=== PATIENT | female | born 1995 | race American Indian/Alaskan Native ===

== ENCOUNTER 2017-06-21 22:24 | Emergency (ER) | payer MEDICAID, OTHER ==
--- NOTE | 2017-06-22 04:49 | Cat Scan Report ---
FINAL REPORT EXAM: CT HEAD/BRAIN WO CON HISTORY: head injury TECHNIQUE: CT imaging acquired through the head without intravenous contrast. Transaxial reformations are provided. PRIORS: None. FINDINGS: The ventricles, cisterns and sulci are normal. No intraparenchymal or extra-axial mass, hemorrhage, or mass effect. Suarez and white-matter differentiation is normal. Normal spherical shape of the globes. Paranasal sinuses and mastoid air cells are clear. No skull or facial fracture visualized. IMPRESSION: No acute intracranial abnormality.
--- NOTE | 2017-06-22 09:34 | Emergency Department Report ---
ED Head Trauma HPI - General Chief complaint: Dizziness Stated complaint: HIT IN THE HEAD AT WORK Time Seen by Provider: 06/22/17 09:18 Source: patient Mode of arrival: Ambulatory Limitations: No Limitations - History of Present Illness MD Complaint: head injury -: Last night Arrival Conditions: Negative: C-spine immobilization present, spinal board immobilization present Mechanism of Injury: work related injury Location: parietal Loss of Consciousness: no Place: work Radiation: none Severity: moderate Severity scale (0 -10): 6 Quality: aching Consistency: constant Associated Symptoms: nausea, vertigo. denies: confusion, amnesia, repetitive questioning, vomiting, weakness, tingling - Related Data Previous Rx's Medication Instructions Recorded Last Taken Type HYDROcodone/APAP 5-325 [[place] 1 each PO Q4HR PRN #12 tablet 06/22/17 Unknown Rx 5/325] Ibuprofen [Motrin] 800 mg PO Q8HR PRN #20 tablet 06/22/17 Unknown Rx Meclizine [Antivert] 25 mg PO TID PRN #12 tablet 06/22/17 Unknown Rx Allergies/Adverse reactions: Allergies Allergy/AdvReac Type Severity Reaction Status Date / Time No Known Allergies Allergy Verified 01/18/13 02:21 ED Review of Systems ROS: Stated complaint: HIT IN THE HEAD AT WORK Other details as noted in HPI Comment: All other systems reviewed and negative ED Past Medical Hx - Past Medical History Previous Medical History?: No - Surgical History Past Surgical History?: No - Social History Smoking Status: Never Smoker Substance Use Type: None - Medications Home Medications: Home Medications Medication Instructions Recorded Confirmed Last Taken Type HYDROcodone/APAP 5-325 [[place] 1 each PO Q4HR PRN #12 tablet 06/22/17 Unknown Rx 5/325] Ibuprofen [Motrin] 800 mg PO Q8HR PRN #20 tablet 06/22/17 Unknown Rx Meclizine [Antivert] 25 mg PO TID PRN #12 tablet 06/22/17 Unknown Rx ED Physical Exam - General Limitations: No Limitations General appearance: alert, in no apparent distress - Head Head exam: Present: atraumatic, normocephalic - Eye Eye exam: Present: normal appearance - ENT ENT exam: Present: mucous membranes moist - Neck Neck exam: Present: normal inspection - Respiratory Respiratory exam: Present: normal lung sounds bilaterally. Absent: respiratory distress, wheezes, rales, rhonchi - Cardiovascular Cardiovascular Exam: Present: regular rate, normal rhythm. Absent: systolic murmur, diastolic murmur, rubs, gallop - GI/Abdominal GI/Abdominal exam: Present: soft, normal bowel sounds. Absent: distended, tenderness, guarding, rebound - Extremities Exam Extremities exam: Present: normal inspection - Back Exam Back exam: Present: normal inspection - Neurological Exam Neurological exam: Present: alert, oriented X3 - Psychiatric Psychiatric exam: Present: normal affect, normal mood - Skin Skin exam: Present: warm, dry, intact, normal color. Absent: rash ED Course Vital Signs 06/21/17 06/21/17 06/22/17 22:39 22:46 03:59 Temperature 98.8 F 98.8 F 98.4 F Pulse Rate 90 84 77 Respiratory 16 16 16 Rate Blood Pressure 131/70 131/70 127/72 Blood Pressure [Right] O2 Sat by Pulse 99 96 99 Oximetry 06/22/17 06/22/17 06/22/17 05:46 05:55 06:00 Temperature 98.1 F Pulse Rate 85 Respiratory 16 Rate Blood Pressure 130/85 Blood Pressure 130/85 [Right] O2 Sat by Pulse 99 99 100 Oximetry 06/22/17 06/22/17 06/22/17 06:16 06:30 06:46 Temperature Pulse Rate Respiratory Rate Blood Pressure 125/55 121/58 125/55 Blood Pressure [Right] O2 Sat by Pulse 98 100 99 Oximetry 06/22/17 07:25 Temperature 97.8 F Pulse Rate 77 Respiratory 19 Rate Blood Pressure Blood Pressure 133/61 [Right] O2 Sat by Pulse 100 Oximetry - Radiology Data Radiology results: report reviewed (CT head withihn nl limits) Critical care attestation.: If time is entered above; I have spent that time in minutes in the direct care of this critically ill patient, excluding procedure time. ED Disposition Clinical Impression: Mild concussion Disposition: DC-01 TO HOME OR SELFCARE Is pt being admited?: No Does the pt Need Aspirin: No Condition: Stable Instructions: Minor Head Injury (ED) Referrals: PRIMARY CARE, [Primary Care Provider] - 3-5 Days Forms: Work/School Release Form(ED)
[2017-06-22 10:09] VITALS: BP 114/65
== END 2017-06-22 10:07 | disposition home or self-care (01) ==
LOC: ED 22:24
DX: S06.0X0A Concussion without loss of consciousness, initial encounter (principal); W22.09XA Striking against other stationary object, initial encounter; Y93.89 Activity, other specified; Y92.89 Other specified places as the place of occurrence of the external cause; Y99.8 Other external cause status
CPT/HCPCS: 70450; 99283

== ENCOUNTER 2018-08-25 13:43 | Emergency (ER) | payer SELFPAY ==
[2018-08-25 14:00] VITALS: BP 119/73
--- NOTE | 2018-08-25 14:09 | Event Note ---
ED Screening Note Date of service: 08/25/18 Time: 14:06 ED Screening Note: 22 y/o female comes in for acute breast pain. Started 20 minutes ago. This initial assessment/diagnostic orders/clinical plan/treatment(s) is/are subject to change based on patients health status, clinical progression and re- assessment by fellow clinical providers in the ED. Further treatment and workup at subsequent clinical providers discretion. Patient/guardian urged not to elope from the ED as their condition may be serious if not clinically assessed and managed. Initial orders include:
--- NOTE | 2018-08-25 14:31 | Emergency Department Report ---
ED General Adult HPI - General Chief complaint: Medical Clearance Stated complaint: LUMP/LT BREAST Time Seen by Provider: 08/25/18 14:23 Source: patient Mode of arrival: Ambulatory Limitations: No Limitations - History of Present Illness Initial comments: Patient is 23 years old female with no significant past medical history. Patient presented to the ER stating that she found that she have a lump on her left breast. Patient stated that she found it today. Patient denied any weight lost. Patient stated that she does have family history of breast cancer. - Related Data Previous Rx's Medication Instructions Recorded Last Taken Type HYDROcodone/APAP 5-325 [[place] 1 each PO Q4HR PRN #12 tablet 06/22/17 Unknown Rx 5/325] Ibuprofen [Motrin] 800 mg PO Q8HR PRN #20 tablet 06/22/17 Unknown Rx Meclizine [Antivert] 25 mg PO TID PRN #12 tablet 06/22/17 Unknown Rx Allergies Allergy/AdvReac Type Severity Reaction Status Date / Time No Known Allergies Allergy Verified 01/18/13 02:21 ED Review of Systems ROS: Stated complaint: LUMP/LT BREAST Other details as noted in HPI Comment: All other systems reviewed and negative Constitutional: denies: chills, fever Respiratory: denies: cough, shortness of breath Cardiovascular: denies: chest pain Gastrointestinal: denies: abdominal pain ED Past Medical Hx - Social History Smoking Status: Former Smoker Substance Use Type: None - Medications Home Medications: Home Medications Medication Instructions Recorded Confirmed Last Taken Type HYDROcodone/APAP 5-325 [[place] 1 each PO Q4HR PRN #12 tablet 06/22/17 Unknown Rx 5/325] Ibuprofen [Motrin] 800 mg PO Q8HR PRN #20 tablet 06/22/17 Unknown Rx Meclizine [Antivert] 25 mg PO TID PRN #12 tablet 06/22/17 Unknown Rx ED Physical Exam - General Limitations: No Limitations General appearance: alert, in no apparent distress - Head Head exam: Present: atraumatic, normocephalic, normal inspection - ENT ENT exam: Present: normal exam - Neck Neck exam: Present: normal inspection, full ROM. Absent: tenderness, meningismus - Respiratory Respiratory exam: Present: normal lung sounds bilaterally - Cardiovascular Cardiovascular Exam: Present: regular rate, normal rhythm, normal heart sounds - GI/Abdominal GI/Abdominal exam: Present: soft, normal bowel sounds. Absent: distended, tenderness, guarding, rebound, rigid, pulsatile mass - Extremities Exam Extremities exam: Present: normal inspection, full ROM, normal capillary refill - Back Exam Back exam: Present: normal inspection, full ROM. Absent: CVA tenderness (R), CVA tenderness (L) - Skin Skin exam: Present: other (left breast exam showed a 2 time 2 cm lump to the medial upper quadrant, no axillary lymph nodes enlargement appreciated) ED Course Vital Signs 08/25/18 13:57 Temperature 97.5 F L Pulse Rate 108 H Respiratory 18 Rate Blood Pressure 119/73 O2 Sat by Pulse 99 Oximetry ED Medical Decision Making - Medical Decision Making Patient is 23 years old female with no significant past medical history. Patient presented to the ER stating that she found that she have a lump on her left breast. Patient stated that she found it today. Patient denied any weight lost. Patient stated that she does have family history of breast cancer. Patient is strongly advised to follow-up with her primary care physician for further workup as an outpatient since is not emergency. Patient given the history or family members with breast cancer. Patient understood the instructions very well I stated that she will follow-up with her primary care physician in the next 2-3 days. Critical care attestation.: If time is entered above; I have spent that time in minutes in the direct care of this critically ill patient, excluding procedure time. ED Disposition Clinical Impression: Breast mass in female Disposition: DC-01 TO HOME OR SELFCARE Is pt being admited?: No Condition: Stable Instructions: Breast Mass (ED) Additional Instructions: Please follow up with your primary care physician for further evaluation by mammogram and breast ultrasound. Referrals: MARYCRUZ GONZALEZ MD [Primary Care Provider] - 3-5 Days
== END 2018-08-25 14:42 | disposition home or self-care (01) ==
LOC: ED 13:43
DX: N63.0 Unspecified lump in unspecified breast (principal); Z87.891 Personal history of nicotine dependence

== ENCOUNTER 2019-07-14 01:15 | Emergency (ER) | payer SELFPAY ==
[2019-07-14 01:22] VITALS: BP 140/79
--- NOTE | 2019-07-14 02:29 | Emergency Department Report ---
ED Female HPI - General Chief complaint: Urogenital-Female Stated complaint: INFECTION ON VAGINAL AREA Source: patient Mode of arrival: Ambulatory Limitations: No Limitations - History of Present Illness Initial comments: Patient is a nulliparous 23-year-old -[place] female with no past medical history who presented to the ED with complaint of acute onset mildly painful rash on the left labia majora and labia minora for the last 2 hours. Patient states that she was showering when she noticed the rash and she decided come to the ED to be evaluated. Patient denies being sexually active at this time, the last time of which was over 9 months ago. Patient denies dysuria, urinary frequency and urgency, nausea, vomiting, chest pain, shortness of breath, vaginal discharge, vaginal bleeding or abdominal pain. MD Complaint: other (Swollen ulcerated lesion and rash on left labium) -: Sudden, hour(s) (2) Location: labia (left) Radiation: non-radiating Severity: mild Severity scale (0 -10): 1 Quality: dull Consistency: constant Improves with: none Worsens with: none Are you Now?: No Last Menstrual Period: 07/06/19 EDC: 04/11/20 Associated Symptoms: denies other symptoms, rash (Mildly erythematous macu lopapular ulcerated rash on left labia minora). denies: vaginal discharge, vaginal bleeding, abdominal pain, nausea/vomiting, fever/chills, headaches, loss of appetite, dysuria, hematuria - Related Data Sexually active: No : 0 Para: 0 A: 0 Previous Rx's Medication Instructions Recorded Last Taken Type HYDROcodone/APAP 5-325 [[place] 1 each PO Q4HR PRN #12 tablet 06/22/17 Unknown Rx 5/325] Ibuprofen [Motrin] 800 mg PO Q8HR PRN #20 tablet 06/22/17 Unknown Rx Meclizine [Antivert] 25 mg PO TID PRN #12 tablet 06/22/17 Unknown Rx Doxycycline Hyclate 100 mg PO Q12H #20 tablet. 07/14/19 Unknown Rx Allergies Allergy/AdvReac Type Severity Reaction Status Date / Time No Known Allergies Allergy Verified 01/18/13 02:21 ED Review of Systems ROS: Stated complaint: INFECTION ON VAGINAL AREA Other details as noted in HPI Constitutional: denies: chills, fever Eyes: denies: eye pain, eye discharge, vision change ENT: denies: ear pain, throat pain Respiratory: denies: cough, shortness of breath, wheezing Cardiovascular: denies: chest pain, palpitations Endocrine: no symptoms reported Gastrointestinal: denies: abdominal pain, nausea, diarrhea Genitourinary: other (left labial rash). denies: urgency, dysuria, discharge Musculoskeletal: denies: back pain, joint swelling, arthralgia Skin: rash (swollen mildly painful rash on left labia majora and minor). denies: lesions, change in color, change in hair/nails Neurological: denies: headache, weakness, paresthesias Psychiatric: denies: anxiety, depression Hematological/Lymphatic: denies: easy bleeding, easy bruising ED Past Medical Hx - Past Medical History Previous Medical History?: No - Surgical History Past Surgical History?: No - Social History Smoking Status: Never Smoker Substance Use Type: None - Medications Home Medications: Home Medications Medication Instructions Recorded Confirmed Last Taken Type HYDROcodone/APAP 5-325 [[place] 1 each PO Q4HR PRN #12 tablet 06/22/17 Unknown Rx 5/325] Ibuprofen [Motrin] 800 mg PO Q8HR PRN #20 tablet 06/22/17 Unknown Rx Meclizine [Antivert] 25 mg PO TID PRN #12 tablet 06/22/17 Unknown Rx Doxycycline Hyclate 100 mg PO Q12H #20 tablet. 07/14/19 Unknown Rx ED Physical Exam - General Limitations: No Limitations General appearance: alert, in no apparent distress - Head Head exam: Present: atraumatic, normocephalic, normal inspection - Eye Eye exam: Present: normal appearance, PERRL, EOMI Pupils: Present: normal accommodation - ENT ENT exam: Present: normal exam, normal orophraynx, mucous membranes moist, TM's normal bilaterally, normal external ear exam - Neck Neck exam: Present: normal inspection, full ROM - Respiratory Respiratory exam: Present: normal lung sounds bilaterally. Absent: respiratory distress, wheezes, rales, chest wall tenderness, accessory muscle use, decreased breath sounds - Cardiovascular Cardiovascular Exam: Present: regular rate, normal rhythm, normal heart sounds. Absent: systolic murmur, diastolic murmur, rubs, gallop - GI/Abdominal GI/Abdominal exam: Present: soft, normal bowel sounds. Absent: tenderness, guarding, hyperactive bowel sounds, hypoactive bowel sounds - External exam: Present: other (Swelling ulcerated mildly erythematous rash on left labia majora and left labium minora) Bi-manual exam: Present: other (Female RN research support specialist Ms. Judd present during the genital exam) - Extremities Exam Extremities exam: Present: normal inspection, full ROM, normal capillary refill. Absent: pedal edema, calf tenderness - Back Exam Back exam: Present: normal inspection, full ROM. Absent: tenderness, CVA tenderness (R), muscle spasm, paraspinal tenderness - Neurological Exam Neurological exam: Present: alert, oriented X3, CN II-XII intact, normal gait, reflexes normal - Psychiatric Psychiatric exam: Present: normal affect, normal mood - Skin Skin exam: Present: warm, dry, intact, normal color, rash (Swollen mildly ulcerated maculopapular rash on left labium minora and left labium majora), erythema ED Course Vital Signs 07/14/19 01:21 Temperature 98.2 F Pulse Rate 98 H Respiratory 18 Rate Blood Pressure 140/79 O2 Sat by Pulse 99 Oximetry ED Medical Decision Making - Medical Decision Making This is a nulliparous 23-year-old -[place] female with no past medical history who presented to the ED with complaint of acute onset mildly painful rash on the left labia majora and labia minora for the last 2 hours. Patient states that she was showering when she noticed the rash and she decided come to the ED to be evaluated. Patient denies being sexually active at this time, the last time of which was over 9 months ago. In the ED, patient is alert and oriented x3 and is not in distress. Physical exam in the presence of a female RN research support specialist Ms. Judd reveals a mildly erythematous ulcerated rash on left labium majora and left labium minora which is consistent with acute folliculitis. Patient was discharged home on medications and advised to follow- up with her primary care physician in 7 to 10 days for reevaluation. Patient was advised to return to the ED immediately if symptoms get worse. - Differential Diagnosis Genital herpes; Folliculitis; abscess; cellulitis Critical care attestation.: If time is entered above; I have spent that time in minutes in the direct care of this critically ill patient, excluding procedure time. ED Disposition Clinical Impression: Acute folliculitis Disposition: DC- TO HOME OR SELFCARE Is pt being admited?: No Does the pt Need Aspirin: No Condition: Stable Instructions: Folliculitis (ED) Additional Instructions: Take medication with food, drink plenty of fluids and follow-up with your primary care physician in 7 to 10 days for reevaluation. Return to the ED immediately if symptoms get worse. Prescriptions: Doxycycline Hyclate 100 mg PO Q12H #20 tablet. Referrals: [facility] [Provider Group] - 7-10 days Time of Disposition: 02:26 Print Language: VIETNAMESE
== END 2019-07-14 02:34 | disposition home or self-care (01) ==
LOC: ED 01:15
DX: L73.8 Other specified follicular disorders (principal)

== ENCOUNTER 2020-01-13 16:22 | Emergency (ER) | payer SELFPAY ==
[2020-01-13] MEDS ORDERED: HYDROcodone/ACETAMINOPHEN 5-325 MG TAB PO ONE (18:22)
[2020-01-13] MEDS ORDERED: LIDOCAINE (1%) 10 MG/1 ML VIAL 20 ML MDV INFILTRATI ONE (18:22)
[2020-01-13] MEDS ORDERED: cephALEXin 500 MG CAP PO ONE (18:22)
--- NOTE | 2020-01-13 18:49 | Emergency Department Report ---
ED General Adult HPI - General Chief complaint: Skin/Abscess/Foreign Body Stated complaint: CYST Time Seen by Provider: 01/13/20 18:21 Source: patient Mode of arrival: Ambulatory Limitations: No Limitations - History of Present Illness Initial comments: pt is a 24 y/o aaf who presents for buttocks abscess x 2 days, this third recurrence of same in past year. pt denies fever or chills, no abd pain no n/v, no riggors. pain is described as 4/10 aching , exacerbated by sitting. pain is relieved by nothing tried , there is no drainage at this time. Severity scale (0 -10): 10 - Related Data Previous Rx's Medication Instructions Recorded Last Taken Type HYDROcodone/APAP 5-325 [[place] 1 each PO Q4HR PRN #12 tablet 06/22/17 Unknown Rx 5/325] Meclizine [Antivert] 25 mg PO TID PRN #12 tablet 06/22/17 Unknown Rx Doxycycline Hyclate 100 mg PO Q12H #20 tablet. 07/14/19 Unknown Rx Chlorhexidine Gluconate 5 ml TP BID #240 liquid 07/31/19 Unknown Rx [Antiseptic Skin Cleanser] Sulfamethoxazole/Trimethoprim 1 each PO BID #20 tablet 07/31/19 Unknown Rx [Bactrim DS TAB] cephALEXin [Keflex] 500 mg PO Q6HR #40 capsule 07/31/19 Unknown Rx Ibuprofen [Motrin 800 MG tab] 800 mg PO Q8HR PRN #40 tablet 08/03/19 Unknown Rx cephALEXin [Keflex] 500 mg PO Q8HR 7 Days #21 cap 01/13/20 Unknown Rx traMADoL [Ultram] 50 mg PO Q6HR PRN #12 tablet 01/13/20 Unknown Rx Allergies Allergy/AdvReac Type Severity Reaction Status Date / Time No Known Allergies Allergy Verified 08/03/19 07:29 ED Review of Systems ROS: Stated complaint: CYST Other details as noted in HPI Constitutional: denies: chills, fever Eyes: denies: eye pain, eye discharge, vision change ENT: denies: ear pain, throat pain Respiratory: denies: cough, shortness of breath, wheezing Cardiovascular: denies: chest pain, palpitations Endocrine: no symptoms reported Gastrointestinal: denies: abdominal pain, nausea, diarrhea Genitourinary: as per HPI Musculoskeletal: denies: back pain, joint swelling, arthralgia Skin: other (buttocks abscess ) Neurological: denies: headache, weakness, paresthesias Psychiatric: denies: anxiety, depression Hematological/Lymphatic: denies: easy bleeding, easy bruising ED Past Medical Hx - Past Medical History Previous Medical History?: No - Surgical History Past Surgical History?: No - Social History Smoking Status: Never Smoker Substance Use Type: None - Medications Home Medications: Home Medications Medication Instructions Recorded Confirmed Last Taken Type HYDROcodone/APAP 5-325 [[place] 1 each PO Q4HR PRN #12 tablet 06/22/17 Unknown Rx 5/325] Meclizine [Antivert] 25 mg PO TID PRN #12 tablet 06/22/17 Unknown Rx Doxycycline Hyclate 100 mg PO Q12H #20 tablet.dr 07/14/19 Unknown Rx Chlorhexidine Gluconate 5 ml TP BID #240 liquid 07/31/19 Unknown Rx [Antiseptic Skin Cleanser] Sulfamethoxazole/Trimethoprim 1 each PO BID #20 tablet 07/31/19 Unknown Rx [Bactrim DS TAB] cephALEXin [Keflex] 500 mg PO Q6HR #40 capsule 07/31/19 Unknown Rx Ibuprofen [Motrin 800 MG tab] 800 mg PO Q8HR PRN #40 tablet 08/03/19 Unknown Rx cephALEXin [Keflex] 500 mg PO Q8HR 7 Days #21 cap 01/13/20 Unknown Rx traMADoL [Ultram] 50 mg PO Q6HR PRN #12 tablet 01/13/20 Unknown Rx ED Physical Exam - General Limitations: No Limitations General appearance: alert, in no apparent distress - Head Head exam: Present: atraumatic, normocephalic - Eye Eye exam: Present: normal appearance - ENT ENT exam: Present: mucous membranes moist - Neck Neck exam: Present: normal inspection - Respiratory Respiratory exam: Present: normal lung sounds bilaterally. Absent: respiratory distress, wheezes, stridor - Cardiovascular Cardiovascular Exam: Present: regular rate, normal rhythm, normal heart sounds. Absent: systolic murmur, diastolic murmur, rubs, gallop - GI/Abdominal GI/Abdominal exam: Present: soft, normal bowel sounds. Absent: distended, tenderness, guarding, rebound, bruit, hernia - Rectal Rectal exam: Present: normal inspection, tenderness (buttock clef no erythema no swelling, mild inderation 1x2 cm no drainage no fever non fluctuant ). Absent: hemorrhoids - Extremities Exam Extremities exam: Present: normal inspection, full ROM. Absent: tenderness - Back Exam Back exam: Present: normal inspection. Absent: CVA tenderness (R), CVA tenderness (L) - Neurological Exam Neurological exam: Present: alert, oriented X3, CN II-XII intact, normal gait - Psychiatric Psychiatric exam: Present: normal affect, normal mood - Skin Skin exam: Present: warm, dry, normal color, other (abcess as above ). Absent: rash, erythema ED Course Vital Signs 01/13/20 01/13/20 17:07 18:32 Temperature 98.5 F Pulse Rate 66 Respiratory 16 22 Rate Blood Pressure 126/55 [Right] O2 Sat by Pulse 99 Oximetry - I & D Buttocks Type of Procedure: Simple (buttock abscess 1x2 cm, no drainage mild erythema, nonfluctuant , tender to touch) Site: 1x2 Blade Size: 11 I & D Procedure: betadine prep, sterile drapes applied, sterile dressing applied Progress: abscess 1x2 cm area cleaned with betadine solution, anesthesia wiht 1% lidocaine x 3 cc, incision with 11 blade scaple x 2, scant purulent bloody drainage, irrigated wth 20 cc sterile saline, sterile dressing applied, pt given wound care instructions including follow up with pcp in 2 days for wound check, pt verbalized agreement and understanding of same, pt tolerated procedure with minimal distress, all bleeding is controlled ED Medical Decision Making - Medical Decision Making abscess buttocks , see procedure noted, all bleeding controlled, pt dc'd to home with rx , pt will follow up with primary care in 2 days for wound check. Critical care attestation.: If time is entered above; I have spent that time in minutes in the direct care of this critically ill patient, excluding procedure time. ED Disposition Clinical Impression: Abscess of buttock Disposition: DC-01 TO HOME OR SELFCARE Is pt being admited?: No Does the pt Need Aspirin: No Condition: Stable Instructions: Skin Abscess, Incision and Drainage Prescriptions: cephALEXin [Keflex] 500 mg PO Q8HR 7 Days #21 cap traMADoL [Ultram] 50 mg PO Q6HR PRN #12 tablet PRN Reason: Pain Referrals: TARA ACUÑA MD [Staff Physician] - 3-5 Days BENEDICTO VITALE MD [Referring] - 3-5 Days Forms: Work/School Release Form(ED) Time of Disposition: 18:56
[2020-01-14 00:48] VITALS: BP 123/82
== END 2020-01-13 19:15 | disposition home or self-care (01) ==
LOC: ED 16:22
DX: L02.31 Cutaneous abscess of buttock (principal); Z79.899 Other long term (current) drug therapy

== ENCOUNTER 2020-01-18 11:27 | Emergency (ER) | payer SELFPAY ==
--- NOTE | 2020-01-18 12:55 | Event Note ---
ED Screening Note Date of service: 01/18/20 Time: 12:54 ED Screening Note: 24-year-old -Swedish female presents to the emergency room for syncopal on her gluteal cleft for over a week. Patient was seen here 5 days ago for the same issue was placed on tramadol and Keflex. This initial assessment/diagnostic orders/clinical plan/treatment(s) is/are subject to change based on patients health status, clinical progression and re- assessment by fellow clinical providers in the ED. Further treatment and workup at subsequent clinical providers discretion. Patient/guardian urged not to elope from the ED as their condition may be serious if not clinically assessed and managed. Initial orders include:
[2020-01-18] MEDS ORDERED: SULFAMETHOXAZOLE/TRIMETHOPRIM 800/160MG DS TAB PO ONE (20:13)
[2020-01-18] MEDS ORDERED: HYDROmorphone 1 MG/1 ML INJ IV ONE (20:13)
[2020-01-18] MEDS ORDERED: ONDANSETRON 4 MG/2 ML INJ IV ONE (20:13)
[2020-01-18] MEDS ORDERED: KETOROLAC 30 MG/1 ML INJ IV ONE (20:14)
[2020-01-18] MEDS ORDERED: LIDOCAINE (1%) 10 MG/1 ML VIAL 20 ML MDV INFILTRATI ONE (20:14)
[2020-01-18 20:38] LABS: Basophils # (Auto) 0.1 K/mm3 (0.0-0.1); Basophils % (Auto) 0.4 % (0.0-1.8); Eosinophils % (Auto) 0.2 % (0.0-4.3); Hematocrit 39.6 % (30.3-42.9); Hemoglobin 13.4 gm/dl (10.1-14.3); Lymphocytes # (Auto) 2.4 K/mm3 (1.2-5.4); Lymphocytes % (Auto) 17.3 % (13.4-35.0); Mean Corpuscular HGB Conc 34 % (30-34); Mean Corpuscular Volume 86 fl (79-97); Monocytes % (Auto) 7.4 % (0.0-7.3); Platelet Count 390 K/mm3 (140-440); Red Cell Distribution Width 13.1 % (13.2-15.2)
[2020-01-18 20:57] LABS: Alanine Aminotransferase 24 units/L (7-56); Albumin 4.6 g/dL (3.9-5); BUN/Creatinine Ratio 13; Blood Urea Nitrogen 8 mg/dL (7-17); Calcium 9.4 mg/dL (8.4-10.2); Hemolysis Index 8
--- NOTE | 2020-01-18 22:45 | Emergency Department Report ---
ED General Adult HPI - General Chief complaint: Skin/Abscess/Foreign Body Stated complaint: CYST PROBLEM Source: patient Mode of arrival: Ambulatory Limitations: No Limitations - History of Present Illness Initial comments: Patient is a nulliparous 24-year-old -[place] female with no past medical history except for recurrent pilonidal cyst abscesses who presents to the ED with complaint of acute onset persistent painful swollen erythematous maculopapular fluctuant rash on pilonidal area for the last 1 week. Patient states that she was initially evaluated in this ED about 5 days ago and was given antibiotics Keflex and pain medications and was discharged home. Patient states that in the last 3 days, the pain and the swelling as well as redness around the area has worsened such that she is unable to sit down because of severe pain in the buttocks. Patient denies nausea, vomiting, diarrhea, dizziness, syncope, chest pain or shortness of breath, numbness and tingling or weakness of lower extremities bilaterally, urinary or bowel incontinence and saddle paresthesia. MD Complaint: Swollen painful rash on the buttocks -: Sudden, week(s) (1) Location: buttocks Radiation: non-radiation Severity scale (0 -10): 8 Quality: aching, sharp Consistency: constant Improves with: none Worsens with: movement Associated Symptoms: denies other symptoms. denies: confusion, chest pain, cough, diaphoresis, fever/chills, headaches, loss of appetite, malaise, nausea/vomiting, rash, seizure, shortness of breath, syncope, weakness, other Treatments Prior to Arrival: none - Related Data Previous Rx's Medication Instructions Recorded Last Taken Type Meclizine [Antivert] 25 mg PO TID PRN #12 tablet 06/22/17 Unknown Rx Doxycycline Hyclate 100 mg PO Q12H #20 tablet. 07/14/19 Unknown Rx Chlorhexidine Gluconate 5 ml TP BID #240 liquid 07/31/19 Unknown Rx [Antiseptic Skin Cleanser] Sulfamethoxazole/Trimethoprim 1 each PO BID #20 tablet 07/31/19 Unknown Rx [Bactrim DS TAB] cephALEXin [Keflex] 500 mg PO Q6HR #40 capsule 07/31/19 Unknown Rx Ibuprofen [Motrin 800 MG tab] 800 mg PO Q8HR PRN #40 tablet 08/03/19 Unknown Rx cephALEXin [Keflex] 500 mg PO Q8HR 7 Days #21 cap 01/13/20 Unknown Rx traMADoL [Ultram] 50 mg PO Q6HR PRN #12 tablet 01/13/20 Unknown Rx Clindamycin [Clindamycin CAP] 300 mg PO Q8HR #60 capsule 01/18/20 Unknown Rx HYDROcodone/APAP 5-325 [[place] 1 each PO Q6HR PRN #12 tablet 01/18/20 Unknown Rx 5-325 mg TAB] Ibuprofen [Motrin] 600 mg PO Q8H PRN #30 tablet 01/18/20 Unknown Rx Ondansetron [Zofran Odt] 4 mg PO Q6HR PRN #15 tab.rapdis 01/18/20 Unknown Rx Allergies Allergy/AdvReac Type Severity Reaction Status Date / Time No Known Allergies Allergy Verified 08/03/19 07:29 ED Review of Systems ROS: Stated complaint: CYST PROBLEM Other details as noted in HPI Constitutional: denies: chills, fever Eyes: denies: eye pain, eye discharge, vision change ENT: denies: ear pain, throat pain Respiratory: denies: cough, shortness of breath, wheezing Cardiovascular: denies: chest pain, palpitations Endocrine: no symptoms reported Gastrointestinal: denies: abdominal pain, nausea, diarrhea Genitourinary: denies: urgency, dysuria, discharge Musculoskeletal: denies: back pain, joint swelling, arthralgia Skin: rash (swollen painful erythematous maculopapular rash on pilonidal area), change in color. denies: lesions Neurological: denies: headache, weakness, paresthesias Psychiatric: denies: anxiety, depression Hematological/Lymphatic: denies: easy bleeding, easy bruising ED Past Medical Hx - Past Medical History Previous Medical History?: Yes Additional medical history: Boil - Surgical History Past Surgical History?: No - Social History Smoking Status: Current Every Day Smoker - Medications Home Medications: Home Medications Medication Instructions Recorded Confirmed Last Taken Type Meclizine [Antivert] 25 mg PO TID PRN #12 tablet 06/22/17 Unknown Rx Doxycycline Hyclate 100 mg PO Q12H #20 tablet. 07/14/19 Unknown Rx Chlorhexidine Gluconate 5 ml TP BID #240 liquid 07/31/19 Unknown Rx [Antiseptic Skin Cleanser] Sulfamethoxazole/Trimethoprim 1 each PO BID #20 tablet 07/31/19 Unknown Rx [Bactrim DS TAB] cephALEXin [Keflex] 500 mg PO Q6HR #40 capsule 07/31/19 Unknown Rx Ibuprofen [Motrin 800 MG tab] 800 mg PO Q8HR PRN #40 tablet 08/03/19 Unknown Rx cephALEXin [Keflex] 500 mg PO Q8HR 7 Days #21 cap 01/13/20 Unknown Rx traMADoL [Ultram] 50 mg PO Q6HR PRN #12 tablet 01/13/20 Unknown Rx Clindamycin [Clindamycin CAP] 300 mg PO Q8HR #60 capsule 01/18/20 Unknown Rx HYDROcodone/APAP 5-325 [[place] 1 each PO Q6HR PRN #12 tablet 01/18/20 Unknown Rx 5-325 mg TAB] Ibuprofen [Motrin] 600 mg PO Q8H PRN #30 tablet 01/18/20 Unknown Rx Ondansetron [Zofran Odt] 4 mg PO Q6HR PRN #15 tab.rapdis 01/18/20 Unknown Rx ED Physical Exam - General Limitations: No Limitations General appearance: alert, in no apparent distress - Head Head exam: Present: atraumatic, normocephalic, normal inspection - Eye Eye exam: Present: normal appearance, PERRL, EOMI Pupils: Present: normal accommodation - ENT ENT exam: Present: normal exam, normal orophraynx, mucous membranes moist, TM's normal bilaterally, normal external ear exam - Neck Neck exam: Present: normal inspection, full ROM - Respiratory Respiratory exam: Present: normal lung sounds bilaterally. Absent: respiratory distress, wheezes, rales, rhonchi, stridor, chest wall tenderness, accessory muscle use, decreased breath sounds - Cardiovascular Cardiovascular Exam: Present: normal rhythm, tachycardia, normal heart sounds. Absent: systolic murmur, diastolic murmur, rubs, gallop - GI/Abdominal GI/Abdominal exam: Present: soft, normal bowel sounds. Absent: tenderness, guarding, rebound, hyperactive bowel sounds, hypoactive bowel sounds, organomegaly - Extremities Exam Extremities exam: Present: normal inspection, full ROM, normal capillary refill. Absent: pedal edema, joint swelling, calf tenderness - Back Exam Back exam: Present: normal inspection, full ROM. Absent: tenderness, CVA tenderness (R), CVA tenderness (L), muscle spasm, paraspinal tenderness, vertebral tenderness - Neurological Exam Neurological exam: Present: alert, oriented X3, CN II-XII intact, normal gait, reflexes normal - Psychiatric Psychiatric exam: Present: normal affect, normal mood - Skin Skin exam: Present: warm, dry, intact, rash (Swollen, severely tender maculopapular erythematous fluctuant rash on pilonidal area), erythema ED Course Vital Signs 01/18/20 11:38 Temperature 98.4 F Pulse Rate 101 H Respiratory 14 Rate Blood Pressure 119/76 O2 Sat by Pulse 97 Oximetry - I & D Sacrum Type of Procedure: Simple Site: Pilonidal area Blade Size: 11 I & D Procedure: betadine prep, sterile drapes applied, sterile dressing applied, gauze wick placed Progress: The area was cleaned thoroughly with normal saline and also Betadine solution. Local anesthetic lidocaine 1% solution was injected around the area for anesthesia. When anesthesia was fully achieved, the area was incised with scalpel blade #11. Copious purulent discharge drained from the site. There is loculations were broken with a hemostat and copious amounts of normal saline khurram ution used to clean the area. The wound was then packed with iodoform gauze. The area was then dressed appropriately with 4 x 4 gauzes and Tegaderm. Patient tolerated the procedure well and was discharged home on additional antibiotics and pain medications and was advised to return to the ED in 2 days for wound recheck and packing removal. Patient was otherwise advised to follow-up with her primary care physician in 7 to 10 days for reevaluation or return to the ED immediately if symptoms get worse. ED Medical Decision Making - Lab Data Result diagrams: 01/18/20 20:25 01/18/20 20:25 - Medical Decision Making This is a nulliparous 24-year-old -[place] female with no past medical history except for recurrent pilonidal cyst abscesses who presents to the ED with complaint of acute onset persistent painful swollen erythematous maculopapular fluctuant rash on pilonidal area for the last 1 week. Patient states that she was initially evaluated in this ED about 5 days ago and was give n antibiotics Keflex and pain medications and was discharged home. Patient states that in the last 3 days, the pain and the swelling as well as redness around the area has worsened such that she is unable to sit down because of severe pain in the buttocks. In the ED, patient is alert and oriented x3 and is not in distress. Patient was treated for pain in the ED and also given clindamycin 900 mg IV x1. Patient also received normal saline 1 L IV bolus x1 as well as antiemetics. Lab test results were reviewed and showed acute leukocytosis of 13,800. The rest of the lab test results are nonactionable. The pilonidal abscess was drained per protocol and the patient tolerated the procedure well. The wound was then packed with iodoform gauze and dressed appropriately with 4 x 4 gauzes and Tegaderm. Patient was then discharged home on additional oral antibiotics clindamycin, as well as pain medication and antiemetics and patient was advised to return to the ED in 2 days for wound recheck and packing removal. Patient was advised to follow-up with her primary care physician in 7 to 10 days for reevaluation or return to the ED immediately if symptoms get worse. - Differential Diagnosis Cellulitis; pilonidal cyst abscess; cutaneous abscess; folliculitis Critical care attestation.: If time is entered above; I have spent that time in minutes in the direct care of this critically ill patient, excluding procedure time. ED Disposition Clinical Impression: Sacrococcygeal pilonidal cyst with abscess, Cellulitis and abscess of buttock Disposition: DC-01 TO HOME OR SELFCARE Is pt being admited?: No Does the pt Need Aspirin: No Condition: Stable Instructions: Incision and Drainage, Care After, Cellulitis, Adult, [id number], Pilonidal Cyst Drainage, Care After, Skin Abscess, [id number] Additional Instructions: All lab test results were reviewed and are all nonactionable. Therefore continue taking the previously prescribed antibiotics in addition to what has been prescribed for you today, take pain medications with food, drink plenty of fluids and follow-up with your primary care physician in 7 to 10 days for reevaluation. Return to the ED immediately if symptoms get worse. Otherwise return to the ED in 2 days for wound recheck and packing removal. Prescriptions: Clindamycin [Clindamycin CAP] 300 mg PO Q8HR #60 capsule Ibuprofen [Motrin] 600 mg PO Q8H PRN #30 tablet PRN Reason: Pain HYDROcodone/APAP 5-325 [[place] 5-325 mg TAB] 1 each PO Q6HR PRN #12 tablet PRN Reason: Pain Ondansetron [Zofran Odt] 4 mg PO Q6HR PRN #15 tab.rapdis PRN Reason: Nausea Referrals: [facility] [Provider Group] - 7-10 days Forms: Work/School Release Form(ED) Time of Disposition: 22:42 Print Language: UKRAINIAN
[2020-01-18 23:07] VITALS: BP 119/71
== END 2020-01-18 23:18 | disposition home or self-care (01) ==
LOC: ED 11:27
DX: L05.01 Pilonidal cyst with abscess (principal)
CPT/HCPCS: 11770; 36415; 80053; 84703; 85025; 87116; 96365; 96375; 99283; J1170; J1885; J2405

== ENCOUNTER 2020-01-21 07:49 | Emergency (ER) | payer SELFPAY ==
[2020-01-21 10:29] VITALS: BP 126/62
--- NOTE | 2020-01-21 10:33 | Emergency Department Report ---
- General Chief Complaint: Laceration/Recheck/Suture Stated Complaint: REMOVAL OF PACKING Time Seen by Provider: 01/21/20 10:20 Source: patient Mode of arrival: Ambulatory Limitations: No Limitations - History of Present Illness Initial Comments: 24-year-old -[place] female presents to the emergency room for packing removal. Patient received packing on Sunday for a pilonidal cyst. Patient reports she is still having pain but not as excruciating as it was. She has currently being treated with clindamycin ibuprofen-[place] and Zofran. Onset/Timin -: days(s) Location: other (Superior gluteal cleft) Patient Tetanus UTD: Yes Associated Symptoms: pain - Related Data Previous Rx's Medication Instructions Recorded Last Taken Type Meclizine [Antivert] 25 mg PO TID PRN #12 tablet 06/22/17 Unknown Rx Doxycycline Hyclate 100 mg PO Q12H #20 tablet. 07/14/19 Unknown Rx Chlorhexidine Gluconate 5 ml TP BID #240 liquid 07/31/19 Unknown Rx [Antiseptic Skin Cleanser] Sulfamethoxazole/Trimethoprim 1 each PO BID #20 tablet 07/31/19 Unknown Rx [Bactrim DS TAB] cephALEXin [Keflex] 500 mg PO Q6HR #40 capsule 07/31/19 Unknown Rx Ibuprofen [Motrin 800 MG tab] 800 mg PO Q8HR PRN #40 tablet 08/03/19 Unknown Rx cephALEXin [Keflex] 500 mg PO Q8HR 7 Days #21 cap 01/13/20 Unknown Rx traMADoL [Ultram] 50 mg PO Q6HR PRN #12 tablet 01/13/20 Unknown Rx Clindamycin [Clindamycin CAP] 300 mg PO Q8HR #60 capsule 01/18/20 Unknown Rx HYDROcodone/APAP 5-325 [[place] 1 each PO Q6HR PRN #12 tablet 01/18/20 Unknown Rx 5-325 mg TAB] Ibuprofen [Motrin] 600 mg PO Q8H PRN #30 tablet 01/18/20 Unknown Rx Ondansetron [Zofran Odt] 4 mg PO Q6HR PRN #15 tab.rapdis 01/18/20 Unknown Rx Allergies Allergy/AdvReac Type Severity Reaction Status Date / Time No Known Allergies Allergy Verified 08/03/19 07:29 ED Review of Systems ROS: Stated complaint: REMOVAL OF PACKING Other details as noted in HPI Comment: All other systems reviewed and negative ED Past Medical Hx - Past Medical History Previous Medical History?: No Additional medical history: Boil - Surgical History Past Surgical History?: No - Social History Smoking Status: Never Smoker Substance Use Type: None - Medications Home Medications: Home Medications Medication Instructions Recorded Confirmed Last Taken Type Meclizine [Antivert] 25 mg PO TID PRN #12 tablet 06/22/17 Unknown Rx Doxycycline Hyclate 100 mg PO Q12H #20 tablet.dr 07/14/19 Unknown Rx Chlorhexidine Gluconate 5 ml TP BID #240 liquid 07/31/19 Unknown Rx [Antiseptic Skin Cleanser] Sulfamethoxazole/Trimethoprim 1 each PO BID #20 tablet 07/31/19 Unknown Rx [Bactrim DS TAB] cephALEXin [Keflex] 500 mg PO Q6HR #40 capsule 07/31/19 Unknown Rx Ibuprofen [Motrin 800 MG tab] 800 mg PO Q8HR PRN #40 tablet 08/03/19 Unknown Rx cephALEXin [Keflex] 500 mg PO Q8HR 7 Days #21 cap 01/13/20 Unknown Rx traMADoL [Ultram] 50 mg PO Q6HR PRN #12 tablet 01/13/20 Unknown Rx Clindamycin [Clindamycin CAP] 300 mg PO Q8HR #60 capsule 01/18/20 Unknown Rx HYDROcodone/APAP 5-325 [[place] 1 each PO Q6HR PRN #12 tablet 01/18/20 Unknown Rx 5-325 mg TAB] Ibuprofen [Motrin] 600 mg PO Q8H PRN #30 tablet 01/18/20 Unknown Rx Ondansetron [Zofran Odt] 4 mg PO Q6HR PRN #15 tab.rapdis 01/18/20 Unknown Rx ED Physical Exam - General Limitations: No Limitations General appearance: alert, in no apparent distress - Head Head exam: Present: atraumatic, normocephalic - Eye Eye exam: Present: normal appearance - ENT ENT exam: Present: mucous membranes moist - Neck Neck exam: Present: normal inspection, full ROM - Rectal Rectal exam: Present: tenderness, other (Indurated in the superior gluteal cleft) - Extremities Exam Extremities exam: Present: normal inspection, full ROM - Back Exam Back exam: Present: normal inspection - Neurological Exam Neurological exam: Present: alert, oriented X3, normal gait - Psychiatric Psychiatric exam: Present: normal affect, normal mood - Skin Skin exam: Present: warm, erythema ED Course Vital Signs 01/21/20 07:52 Temperature 97.3 F L Pulse Rate 84 Respiratory 16 Rate Blood Pressure 126/62 O2 Sat by Pulse 95 Oximetry ED Medical Decision Making - Radiology Data Radiology results: report reviewed [facility] [address] [place] [address] Cat Scan Report Signed Patient: DWIGHT GABRIEL MR#: [id number] : 1995 Acct:[id number] Age/Sex: 24 / F ADM Date: 01/21/20 Loc: ED Attending Dr: Ordering Physician: MARILYN CROSS Date of Service: 01/21/20 Procedure(s): CT abdomen pelvis w con Accession Number(s): [id number] cc: MARILYN CROSS CT abdomen pelvis w con INDICATION: Pilonidal cyst. TECHNIQUE: All CT scans at this location are performed using the following dose modulation technique: Automated exposure control. Helical slices were obtained through the abdomen and pelvis following the administration of 100 cc of Omnipaque 300 COMPARISON: None available. FINDINGS: Abdomen: Lung bases are clear. Liver, spleen, pancreas, adrenal glands, and kidneys show no acute abnormality. The aorta is normal in diameter. There is no obstruction, inflammation, or free air. There is a moderate to large amount of stool noted throughout the colon raising the possibility of constipation. Pelvis: The appendix is unremarkable. There is a small physiologic appearing cysts noted in the right ovary. There is no obstruction or inflammation. There is no adenopathy. In the subcutaneous fat in the midline of the upper buttocks is posterior to the lower sacrum and coccyx there is a collection of fluid and air which measures approximately 1.5 cm characteristic of a small cutaneous abscess. Bone windows, no acute osseous abnormalities are seen. IMPRESSION: 1. There is a 1.5 cm subcutaneous abscess in the upper buttocks in the midline. 2. There is moderate to large amount of stool noted throughout the colon raising the possibility of constipation. Signer Name: Eros Fountain MD Signed: 01/21/2020 12:15 PM Workstation Name: [id number] Transcribed By: SS Dictated By: Eros Fountain MD Electronically Authenticated By: Eros Fountain MD Signed Date/Time: 01/21/201214 DD/ 11 TD/TT: - Medical Decision Making 24-year-old -[place] female presents to the emergency room for packing removal. Patient received packing on Sunday for a pilonidal cyst. Patient reports she is still having pain but not as excruciating as it was. She has currently being treated with clindamycin ibuprofen-[place] and Zofran. CT with contrast concern for deeper wound as patient had over 2 feet of packing to remove with still induration. Patient went was consulted by surgeon Dr. Rowland who recommends patient to self pack and to follow-up in 2 weeks week after Jourdan for a total pilonidal ectomy Critical care attestation.: If time is entered above; I have spent that time in minutes in the direct care of this critically ill patient, excluding procedure time. ED Disposition Clinical Impression: Abscess of buttock Disposition: DC-01 TO HOME OR SELFCARE Is pt being admited?: No Does the pt Need Aspirin: No Condition: Stable Instructions: Skin Abscess, Boch-tr-Ficz Additional Instructions: Continue with antibiotics and pain medication follow-up in [address] Rowland. Referrals: PRIMARY [facility]D [Primary Care Provider] - 3-5 Days EDENILSON ROWLAND MD [Staff Physician] - 3-5 Days Forms: Work/School Release Form(ED)
[2020-01-21] MEDS ORDERED: IBUPROFEN 600 MG TAB PO ONE (10:38)
[2020-01-21] MEDS ORDERED: KETOROLAC 30 MG/1 ML INJ IV ONE (11:04)
--- NOTE | 2020-01-21 12:19 | Cat Scan Report ---
CT abdomen pelvis w con INDICATION: Pilonidal cyst. TECHNIQUE: All CT scans at this location are performed using the following dose modulation technique: Automated exposure control. Helical slices were obtained through the abdomen and pelvis following the administr ation of 100 cc of Omnipaque 300 COMPARISON: None available. FINDINGS: Abdomen: Lung bases are clear. Liver, spleen, pancreas, adrenal glands, and kidneys show no acute abn ormality. The aorta is normal in diameter. There is no obstruction, inflammation, or free air. There is a moderate to large amount of stool noted throughout the colon raising the possibility of constipa tion. Pelvis: The appendix is unremarkable. There is a small physiologic appearing cysts noted in the right ovary. There is no obstruction or inflammation. There is no adenopathy. In the subcutaneous fat in the midline of the upper buttocks is posterior to the lower sacrum and federico cyx there is a collection of fluid and air which measures approximately 1.5 cm characteristic of a sm all cutaneous abscess. Bone windows, no acute osseous abnormalities are seen. IMPRESSION: 1. There is a 1.5 cm subcutaneous abscess in the upper buttocks in the midline. 2. There is moderate to large amount of stool noted throughout the colon raising the possibility of c onstipation. Signer Name: Eros Fountain MD Signed: 01/21/2020 12:15 PM Workstation Name: [id number]
--- NOTE | 2020-01-21 13:34 | Consultation ---
History of Present Illness Consult date: 01/21/20 - History of present illness History of present illness: Pt to ER for f/u visit s/p lancing of pilonidal abscess here in ER last week. pt has no complaints and was improving and was here to f/u as directed. CT obtained-- no UNDRAINED abscess present pt with at least 2 prior bouts of this in years past-- never got formal cystectomy done due to lack of insurance. Pt will have insurance in 2020 and promises to f/u as recommended. Medications and Allergies Allergies Allergy/AdvReac Type Severity Reaction Status Date / Time No Known Allergies Allergy Verified 08/03/19 07:29 Home Medications Medication Instructions Recorded Confirmed Last Taken Type Meclizine [Antivert] 25 mg PO TID PRN #12 tablet 06/22/17 Unknown Rx Doxycycline Hyclate 100 mg PO Q12H #20 tablet. 07/14/19 Unknown Rx Chlorhexidine Gluconate 5 ml TP BID #240 liquid 07/31/19 Unknown Rx [Antiseptic Skin Cleanser] Sulfamethoxazole/Trimethoprim 1 each PO BID #20 tablet 07/31/19 Unknown Rx [Bactrim DS TAB] cephALEXin [Keflex] 500 mg PO Q6HR #40 capsule 07/31/19 Unknown Rx Ibuprofen [Motrin 800 MG tab] 800 mg PO Q8HR PRN #40 tablet 08/03/19 Unknown Rx cephALEXin [Keflex] 500 mg PO Q8HR 7 Days #21 cap 01/13/20 Unknown Rx traMADoL [Ultram] 50 mg PO Q6HR PRN #12 tablet 01/13/20 Unknown Rx Clindamycin [Clindamycin CAP] 300 mg PO Q8HR #60 capsule 01/18/20 Unknown Rx HYDROcodone/APAP 5-325 [[place] 1 each PO Q6HR PRN #12 tablet 01/18/20 Unknown Rx 5-325 mg TAB] Ibuprofen [Motrin] 600 mg PO Q8H PRN #30 tablet 01/18/20 Unknown Rx Ondansetron [Zofran Odt] 4 mg PO Q6HR PRN #15 tab.rapdis 01/18/20 Unknown Rx Exam Vital Signs Temp Pulse Resp BP Pulse Ox 97.3 F L 84 16 126/62 95 01/21/20 07:52 01/21/20 07:52 01/21/20 07:52 01/21/20 07:52 01/21/20 07:52 - General physical appearance Positive: well developed (buttocks with 1cm open wound upper gluteal cleft with drainage of serous fluid with palpation (approx 4-5ml released); no erythema/swelling), well nourished, no distress Assessment and Plan Recurrent pilonidal disease with abscess s/p I&D (ER) Doing well. Cont abx for 10 more days. Wick wound daily. ok to shower with or without dressing in place. f/u with me at next avail clinic to schedule formal pilonidal cystectomy as definitive tx d/w ER provider
== END 2020-01-21 14:02 | disposition home or self-care (01) ==
LOC: ED 07:49
DX: L02.31 Cutaneous abscess of buttock (principal); Z79.899 Other long term (current) drug therapy
CPT/HCPCS: 74177; 96374; 99283; J1885; Q9967

== ENCOUNTER 2020-03-12 11:10 | Emergency (ER) | payer BC ==
[2020-03-12 14:57] LABS: Basophils # (Auto) 0.1 K/mm3 (0.0-0.1); Basophils % (Auto) 0.5 % (0.0-1.8); Eosinophils % (Auto) 0.1 % (0.0-4.3); Hematocrit 40.4 % (30.3-42.9); Hemoglobin 13.6 gm/dl (10.1-14.3); Lymphocytes # (Auto) 1.2 K/mm3 (1.2-5.4); Lymphocytes % (Auto) 8.5 % (13.4-35.0); Mean Corpuscular HGB Conc 34 % (30-34); Mean Corpuscular Volume 88 fl (79-97); Monocytes % (Auto) 6.7 % (0.0-7.3); Platelet Count 359 K/mm3 (140-440); Red Cell Distribution Width 14.1 % (13.2-15.2)
[2020-03-12] MEDS ORDERED: HYDROcodone/ACETAMINOPHEN 10-325MG TAB PO ONE (15:04)
[2020-03-12 15:15] LABS: Alanine Aminotransferase 17 units/L (7-56); Albumin 4.5 g/dL (3.9-5); Blood Urea Nitrogen 9 mg/dL (7-17); Calcium 8.7 mg/dL (8.4-10.2); Hemolysis Index 9
[2020-03-12 15:16] LABS: BUN/Creatinine Ratio 13
[2020-03-12] MEDS ORDERED: LIDOCAINE VISCOUS 2% 15 ML ORAL LIQD PO ONE (16:03)
--- NOTE | 2020-03-12 16:05 | Emergency Department Report ---
Abscess Boil HPI - HPI Chief Complaint: Skin/Abscess/Foreign Body Stated Complaint: HEMORIDAL CYST Time Seen by Provider: 03/12/20 15:26 Duration: 5 Days Location: Sacral/Pilonidal History: Yes Pain, Yes Previous History, No Fever, No Purulent Drainage, No Numbness, No Foreign Body, No Insect Bite HPI: This is a 24-year-old female with a history of recurrent pilonidal cyst abscess presents the ED complaining of rectal pain and another case of pilonidal cyst x3 to 4 days. Patient states that pain began about 5 days ago which is worsened until now where she is unable to see due to pain. Patient states the last time she was here she had a consult with a general surgery for removal of the pilonidal cyst. Patient denies fever/chills/nausea vomiting or any other s ymptoms. Home Medications: Previous Rx's Medication Instructions Recorded Last Taken Type Meclizine [Antivert] 25 mg PO TID PRN #12 tablet 06/22/17 Unknown Rx Doxycycline Hyclate 100 mg PO Q12H #20 tablet.dr 07/14/19 Unknown Rx Chlorhexidine Gluconate 5 ml TP BID #240 liquid 07/31/19 Unknown Rx [Antiseptic Skin Cleanser] cephALEXin [Keflex] 500 mg PO Q6HR #40 capsule 07/31/19 Unknown Rx cephALEXin [Keflex] 500 mg PO Q8HR 7 Days #21 cap 01/13/20 Unknown Rx traMADoL [Ultram] 50 mg PO Q6HR PRN #12 tablet 01/13/20 Unknown Rx Ibuprofen [Motrin] 600 mg PO Q8H PRN #30 tablet 01/18/20 Unknown Rx Clindamycin [Clindamycin CAP] 300 mg PO Q8HR #60 capsule 03/12/20 Unknown Rx HYDROcodone/APAP 5-325 [[place] 1 each PO Q6HR PRN #12 tablet 03/12/20 Unknown Rx 5-325 mg TAB] Ibuprofen [Motrin 800 MG tab] 800 mg PO Q8HR PRN #40 tablet 03/12/20 Unknown Rx Ondansetron [Zofran ODT TAB] 4 mg PO Q6HR PRN #15 tab.rapdis 03/12/20 Unknown Rx Sulfamethoxazole/Trimethoprim 1 each PO BID #20 tablet 03/12/20 Unknown Rx [Bactrim DS TAB] Allergies/Adverse Reactions: Allergies Allergy/AdvReac Type Severity Reaction Status Date / Time No Known Allergies Allergy Verified 08/03/19 07:29 ED Review of Systems ROS: Stated complaint: HEMORIDAL CYST Other details as noted in HPI Comment: All other systems reviewed and negative ED Past Medical Hx - Past Medical History Previous Medical History?: No Additional medical history: Boil - Surgical History Past Surgical History?: No - Social History Smoking Status: Never Smoker Substance Use Type: None - Medications Home Medications: Home Medications Medication Instructions Recorded Confirmed Last Taken Type Meclizine [Antivert] 25 mg PO TID PRN #12 tablet 06/22/17 Unknown Rx Doxycycline Hyclate 100 mg PO Q12H #20 tablet. 07/14/19 Unknown Rx Chlorhexidine Gluconate 5 ml TP BID #240 liquid 07/31/19 Unknown Rx [Antiseptic Skin Cleanser] cephALEXin [Keflex] 500 mg PO Q6HR #40 capsule 07/31/19 Unknown Rx cephALEXin [Keflex] 500 mg PO Q8HR 7 Days #21 cap 01/13/20 Unknown Rx traMADoL [Ultram] 50 mg PO Q6HR PRN #12 tablet 01/13/20 Unknown Rx Ibuprofen [Motrin] 600 mg PO Q8H PRN #30 tablet 01/18/20 Unknown Rx Clindamycin [Clindamycin CAP] 300 mg PO Q8HR #60 capsule 03/12/20 Unknown Rx HYDROcodone/APAP 5-325 [[place] 1 each PO Q6HR PRN #12 tablet 03/12/20 Unknown Rx 5-325 mg TAB] Ibuprofen [Motrin 800 MG tab] 800 mg PO Q8HR PRN #40 tablet 03/12/20 Unknown Rx Ondansetron [Zofran ODT TAB] 4 mg PO Q6HR PRN #15 tab.rapdis 03/12/20 Unknown Rx Sulfamethoxazole/Trimethoprim 1 each PO BID #20 tablet 03/12/20 Unknown Rx [Bactrim DS TAB] ED Abscess Boil Physical Exam - Exam General: Vital signs noted. No distress. Alert and acting appropriately. Size: 5 cm Exam: Yes Tenderness, Yes Fluctuance, Yes Surrounding Cellulites/Erythema, No Lymphangitis, No Crepitation, No Heart Murmur, No Normal Neurologic Exam, No Normal Circulation I & D Note - I & D Note I & D Note: patient positioned appropriately, 15cc lidocaine with/without epinephrine was used as a local anesthetic. #11 blade scalpal used for single i ncision. Additional local anesthetic injected into surrounding viable tissue prior to blunt dissection of loculated adhesions. Copius drainage of pus was suctioned out with bedside suction. Wound packed with iodoform gauze. Procedure tolerated without complications. Wound dressed with sterile 4x4 guaze and paper tape. Pt tolerated procedure well. ED Course Vital Signs 03/12/20 11:38 Temperature 99.6 F Pulse Rate 138 H Respiratory 24 Rate O2 Sat by Pulse 97 Oximetry Critical care attestation.: If time is entered above; I have spent that time in minutes in the direct care of this critically ill patient, excluding procedure time. ED Medical Decision Making - Lab Data Result diagrams: 03/12/20 14:35 03/12/20 14:35 - Medical Decision Making 24-year-old female presents with recurrent pilonidal cyst abscess. I&D was performed, see I&D note. Patient tolerated procedure well. Discussed completion of both antibiotic therapy. Patient stated feeling better after drainage. Discussed with patient to return in 2 to 3 days for packing removal. Vital signs are normal patient is in no acute distress. Patient to follow-up with her primary care physician as well as general surgery for consult for removal of cyst Discussed with patient if she has any worsening symptoms she may return to the ED. ED Disposition Clinical Impression: Pilonidal cyst with abscess, Chronic recurrent pilonidal cyst Disposition: - TO HOME OR SELFCARE Is pt being admited?: No Does the pt Need Aspirin: No Condition: Stable Instructions: Pilonidal Cyst, Pilonidal Cyst Drainage Additional Instructions: Make sure to follow up with the primary care physician as discussed. Take all your medications as you've been prescribed. If you have any worsening symptoms or develop new symptoms please return to ED immediately. Prescriptions: Sulfamethoxazole/Trimethoprim [Bactrim DS TAB] 1 each PO BID #20 tablet Clindamycin [Clindamycin CAP] 300 mg PO Q8HR #60 capsule Ibuprofen [Motrin 800 MG tab] 800 mg PO Q8HR PRN #40 tablet PRN Reason: Pain HYDROcodone/APAP 5-325 [[place] 5-325 mg TAB] 1 each PO Q6HR PRN #12 tablet PRN Reason: Pain Ondansetron [Zofran ODT TAB] 4 mg PO Q6HR PRN #15 tab.rapdis PRN Reason: Nausea Referrals: ZACK JENKINS MD [Primary Care Provider] - 3-5 Days Forms: Accompanied Note, Work/School Release Form(ED)
[2020-03-12] MEDS ORDERED: LIDOCAINE (1%) 10 MG/1 ML VIAL 20 ML MDV INFILTRATI NR (16:15)
[2020-03-12] MEDS ORDERED: SODIUM CHLORIDE IRRI 500 ML 500 ML IR ONE (16:36)
[2020-03-12] MEDS ORDERED: SODIUM CHLORIDE 0.9% 500 ML IVPB IRRIGATION SCH (17:00)
[2020-03-12] MEDS ORDERED: diphenhydrAMINE 25 MG CAP PO ONE ×3 (17:15→17:18)
[2020-03-12] MEDS ORDERED: IBUPROFEN 800 MG TAB PO ONE (18:16)
== END 2020-03-12 18:35 | disposition home or self-care (01) ==
LOC: ED 11:10
DX: L05.01 Pilonidal cyst with abscess (principal); Z79.1 Long term (current) use of non-steroidal anti-inflammatories (NSAID); Z79.2 Long term (current) use of antibiotics; Z79.899 Other long term (current) drug therapy
CPT/HCPCS: 10080; 36415; 80053; 82140; 85025; 86140; 99283; J7040

== ENCOUNTER 2020-03-15 12:49 | Emergency (ER) | payer BC ==
[2020-03-15 13:04] VITALS: BP 111/56
--- NOTE | 2020-03-15 13:16 | Emergency Department Report ---
- General Chief complaint: Laceration/Recheck/Suture Stated complaint: GAUZE REMOVAL Time Seen by Provider: 03/15/20 13:14 Source: patient Mode of arrival: Ambulatory Limitations: No Limitations - History of Present Illness Initial comments: pt is a 24 yo female who presents to the ED with c/o packing removal. she was evaluated in the ED on 03/12/2020 and underwent an I&D for a pilonal cyst. she reports today for removal of packing. she denies any increased pain, increased drainage, fever, n/v/d, chills. she states she has an upcoming appointment with a general surgeon on 03/17/2020. she denies any medication allergies. she states she has been taking her antibiotics prescribed during her last visit. - Related Data Previous Rx's Medication Instructions Recorded Last Taken Type Meclizine [Antivert] 25 mg PO TID PRN #12 tablet 06/22/17 Unknown Rx Doxycycline Hyclate 100 mg PO Q12H #20 tablet. 07/14/19 Unknown Rx Chlorhexidine Gluconate 5 ml TP BID #240 liquid 07/31/19 Unknown Rx [Antiseptic Skin Cleanser] cephALEXin [Keflex] 500 mg PO Q6HR #40 capsule 07/31/19 Unknown Rx cephALEXin [Keflex] 500 mg PO Q8HR 7 Days #21 cap 01/13/20 Unknown Rx traMADoL [Ultram] 50 mg PO Q6HR PRN #12 tablet 01/13/20 Unknown Rx Ibuprofen [Motrin] 600 mg PO Q8H PRN #30 tablet 01/18/20 Unknown Rx Clindamycin [Clindamycin CAP] 300 mg PO Q8HR #60 capsule 03/12/20 Unknown Rx HYDROcodone/APAP 5-325 [[place] 1 each PO Q6HR PRN #12 tablet 03/12/20 Unknown Rx 5-325 mg TAB] Ibuprofen [Motrin 800 MG tab] 800 mg PO Q8HR PRN #40 tablet 03/12/20 Unknown Rx Ondansetron [Zofran ODT TAB] 4 mg PO Q6HR PRN #15 tab.rapdis 03/12/20 Unknown Rx Sulfamethoxazole/Trimethoprim 1 each PO BID #20 tablet 03/12/20 Unknown Rx [Bactrim DS TAB] Allergies Allergy/AdvReac Type Severity Reaction Status Date / Time No Known Allergies Allergy Verified 08/03/19 07:29 Abscess Boil HPI - HPI Chief Complaint: Laceration/Recheck/Suture Stated Complaint: GAUZE REMOVAL Time Seen by Provider: 03/15/20 13:14 Home Medications: Previous Rx's Medication Instructions Recorded Last Taken Type Meclizine [Antivert] 25 mg PO TID PRN #12 tablet 06/22/17 Unknown Rx Doxycycline Hyclate 100 mg PO Q12H #20 tablet. 07/14/19 Unknown Rx Chlorhexidine Gluconate 5 ml TP BID #240 liquid 07/31/19 Unknown Rx [Antiseptic Skin Cleanser] cephALEXin [Keflex] 500 mg PO Q6HR #40 capsule 07/31/19 Unknown Rx cephALEXin [Keflex] 500 mg PO Q8HR 7 Days #21 cap 01/13/20 Unknown Rx traMADoL [Ultram] 50 mg PO Q6HR PRN #12 tablet 01/13/20 Unknown Rx Ibuprofen [Motrin] 600 mg PO Q8H PRN #30 tablet 01/18/20 Unknown Rx Clindamycin [Clindamycin CAP] 300 mg PO Q8HR #60 capsule 03/12/20 Unknown Rx HYDROcodone/APAP 5-325 [[place] 1 each PO Q6HR PRN #12 tablet 03/12/20 Unknown Rx 5-325 mg TAB] Ibuprofen [Motrin 800 MG tab] 800 mg PO Q8HR PRN #40 tablet 03/12/20 Unknown Rx Ondansetron [Zofran ODT TAB] 4 mg PO Q6HR PRN #15 tab.rapdis 03/12/20 Unknown Rx Sulfamethoxazole/Trimethoprim 1 each PO BID #20 tablet 03/12/20 Unknown Rx [Bactrim DS TAB] Allergies/Adverse Reactions: Allergies Allergy/AdvReac Type Severity Reaction Status Date / Time No Known Allergies Allergy Verified 08/03/19 07:29 ED Review of Systems ROS: Stated complaint: GAUZE REMOVAL Other details as noted in HPI Comment: All other systems reviewed and negative ED Past Medical Hx - Past Medical History Previous Medical History?: No Additional medical history: Boil - Surgical History Past Surgical History?: No - Social History Smoking Status: Never Smoker Substance Use Type: None - Medications Home Medications: Home Medications Medication Instructions Recorded Confirmed Last Taken Type Meclizine [Antivert] 25 mg PO TID PRN #12 tablet 06/22/17 Unknown Rx Doxycycline Hyclate 100 mg PO Q12H #20 tablet. 07/14/19 Unknown Rx Chlorhexidine Gluconate 5 ml TP BID #240 liquid 07/31/19 Unknown Rx [Antiseptic Skin Cleanser] cephALEXin [Keflex] 500 mg PO Q6HR #40 capsule 07/31/19 Unknown Rx cephALEXin [Keflex] 500 mg PO Q8HR 7 Days #21 cap 01/13/20 Unknown Rx traMADoL [Ultram] 50 mg PO Q6HR PRN #12 tablet 01/13/20 Unknown Rx Ibuprofen [Motrin] 600 mg PO Q8H PRN #30 tablet 01/18/20 Unknown Rx Clindamycin [Clindamycin CAP] 300 mg PO Q8HR #60 capsule 03/12/20 Unknown Rx HYDROcodone/APAP 5-325 [[place] 1 each PO Q6HR PRN #12 tablet 03/12/20 Unknown Rx 5-325 mg TAB] Ibuprofen [Motrin 800 MG tab] 800 mg PO Q8HR PRN #40 tablet 03/12/20 Unknown Rx Ondansetron [Zofran ODT TAB] 4 mg PO Q6HR PRN #15 tab.rapdis 03/12/20 Unknown Rx Sulfamethoxazole/Trimethoprim 1 each PO BID #20 tablet 03/12/20 Unknown Rx [Bactrim DS TAB] ED Physical Exam - General Limitations: No Limitations General appearance: alert, in no apparent distress - Head Head exam: Present: atraumatic, normocephalic - Eye Eye exam: Present: normal appearance - ENT ENT exam: Present: mucous membranes moist - Respiratory Respiratory exam: Absent: respiratory distress, accessory muscle use - Neurological Exam Neurological exam: Present: alert, oriented X3 - Psychiatric Psychiatric exam: Present: normal affect, normal mood - Skin Skin exam: Present: warm, dry, other (there is a 1 cm incision made in the superior portion of the right gluteal cleft, there is packing in place, no surrounding erythema or induration, no increased drainage, no necrosis, rock singer: GRICELDA Lynn) ED Course Vital Signs 03/15/20 13:02 Temperature 98.3 F Pulse Rate 81 Respiratory 18 Rate Blood Pressure 111/56 O2 Sat by Pulse 100 Oximetry ED Medical Decision Making - Medical Decision Making pt is a 24 yo female who presents to the ED with c/o packing removal. she was evaluated in the ED on 03/12/2020 and underwent an I&D for a pilonal cyst. she reports today for removal of packing. she denies any increased pain, increased drainage, fever, n/v/d, chills. she states she has an upcoming appointment with a general surgeon on 03/17/2020. she denies any medication allergies. she states she has been taking her antibiotics prescribed during her last visit. Vitals are normal. On exam: there is a 1 cm incision made in the superior portion of the right gluteal cleft, there is packing in place, no surrounding erythema or induration, no increased drainage, no necrosis, rock singer: GRICELDA Lynn. packing removal without any difficulty there is no bleeding or drainage, no signs of cellulitis or pus collection, irrigated with saline and new dressing placed. discussed wound care with pt. advised pt please complete your anti biotics as prescribed during your last ER visit. please keep area clean, dry, covered. wash with antibacterial soap and water twice a day and pat dry. no hot tub, no pool, no soaking in water. showering is fine. please keep your appointment with your general surgeon. return to the emergency room for any new or worsening symptoms. Critical care attestation.: If time is entered above; I have spent that time in minutes in the direct care of this critically ill patient, excluding procedure time. ED Disposition Clinical Impression: Abscess packing removal Disposition: TO HOME OR SELFCARE Is pt being admited?: No Does the pt Need Aspirin: No Condition: Stable Instructions: Wound Care, Adult Additional Instructions: please complete your antibiotics as prescribed during your last ER visit. please keep area clean, dry, covered. wash with antibacterial soap and water twice a day and pat dry. no hot tub, no pool, no soaking in water. showering is fine. please keep your appointment with your general surgeon. return to the emergency room for any new or worsening symptoms. Referrals: your, general surgeon [Other] - 2-3 Days Time of Disposition: 13:15 Print Language: SPANISH
== END 2020-03-15 13:47 | disposition home or self-care (01) ==
LOC: ED 12:49
DX: L05.91 Pilonidal cyst without abscess (principal); Z48.01 Encounter for change or removal of surgical wound dressing; Z79.1 Long term (current) use of non-steroidal anti-inflammatories (NSAID); Z79.2 Long term (current) use of antibiotics; Z79.899 Other long term (current) drug therapy
CPT/HCPCS: 99282